=== PATIENT | male | born 1985 | race Caucasian/White ===

== ENCOUNTER 2021-08-25 10:02 | Emergency (ER) | payer OTHER, SELFPAY ==
[2021-08-25] VITALS (8 sets, daily range): BP systolic 104–120; BP diastolic 58–84; PULSE 92–98; RESP 20–29; TEMP 37.4–39.2; O2SAT 97–100
--- NOTE | ~2021-08-25 | XR_ITS ---
EXAMINATION: XR chest 1V portable 08/25/2021 11:01 INDICATION: Weakness and fever PROCEDURE: AP portable chest COMPARISON: No prior studies for comparison. FINDINGS: The lungs are clear. The cardiomediastinal silhouette is within normal limits. There are no pleural effusions. There is no pneumothorax suspected. IMPRESSION: 1: NO ACUTE CARDIOPULMONARY DISEASE. Reviewed, dictated and finalized at location A.
--- NOTE | 2021-08-25 10:13 | ECG_ITS ---
Measurements Intervals [place] Rate: 103 P: 72 NE: 155 QRS: 55 QRSD: 98 T: 59 QT: 318 QTc: 416 Interpretive Statements SINUS TACHYCARDIA LOW VOLTAGE ACROSS THE LIMB LEADS ABNORMAL ECG NO PREVIOUS ECG AVAILABLE FOR COMPARISON Electronically Signed On 08-25-2021 12:42:08 CDT by Bimal Noriega M.D.
[2021-08-25 10:26] LABS: Basophils Absolute Auto 0.1 K/mm3 (0.0-0.1); Basophils Percent Auto 0.7 % (0.2-1.2); Hematocrit 39.6 % (42.0-52.0); Hemoglobin 13.8 g/dL (14.0-18.0); Immature Granulocyte Absolute 0.08 K/mm3 (0.00-0.031); Immature Granulocyte Percent A 0.7 % (0-0.5); Immature Platelet Fraction Pct 5.5 % (0.9-11.2); Lymphocytes Absolute Auto 0.47 K/mm3 (0.9-3.2); Lymphocytes Percent Auto 4.4 % (18.3-44.2); Mean Corpuscular HGB Conc 34.8 g/dl (32-36); Mean Corpuscular Hemoglobin 30.5 pg (26-34); Mean Corpuscular Volume 87.4 fl (80-100); Mean Platelet Volume 10.9 fl (7.4-10.4); Monocytes Absolute Auto 1.4 K/mm3 (0.1-0.6); Monocytes Percent Auto 12.8 % (2.6-8.5); Neutrophils Absolute Auto 8.8 K/mm3 (1.3-6.7); Neutrophils Percent Auto 81.4 % (45.5-73.1); Platelet Count Result 124 k/mm3 (150-375); Red Blood Count 4.53 M/mm3 (4.6-6.20); Red Cell Distribution Width 12.3 % (11.5-14.5); White Blood Count 10.7 K/mm3 (4.5-10.0)
[2021-08-25] MEDS: ACETAMINOPHEN 500 MG TABLET 1000 MG PO (10:32)
[2021-08-25 10:35] LABS: Lactic Acid Reflex 1.5 mmol/L (0.7-2.1)
[2021-08-25 10:36] LABS: Alanine Aminotransferase 60 U/L (4-50); Albumin Level 4.2 g/dL (3.5-5.1); Alkaline Phosphatase 101 U/L (38-126); Anion Gap 10 mmol/L (8-16); Aspartate Amino Transferase 60 U/L (17-59); Bilirubin,Total 0.9 mg/dL (0.2-1.3); Blood Urea Nitrogen 12 mg/dL (9-20); Calcium 9.1 mg/dL (8.4-10.2); Carbon Dioxide 26 mmol/L (22-30); Chloride 97 mmol/L (98-107); Estimated CRCL calculation 72 ml/min; Estimated Glomerular Filt Rate > 60; Glucose 122 mg/dL (65-110); Potassium 3.8 mmol/L (3.4-5.0); Sodium 133 mmol/L (137-145)
[2021-08-25 10:37] LABS: INR 1.2; Prothrombin Time 14.5 Seconds (11.1-14.7)
[2021-08-25] MEDS: SODIUM CHLORIDE 0.9% IV 1,000 ML 999 ML IV CONT ×2 (10:47→12:23)
--- NOTE | 2021-08-25 10:55 | ED.GENADULT ---
HPI - General Adult General Chief complaint: Weakness Stated complaint: cant walk , fever Time Seen by Provider: 08/25/21 10:37 Source: patient, family and RN notes reviewed History of Present Illness HPI narrative: Patient is 36 years old white male came to the emergency room with his from home complaining of general weakness and fever. Patient went to [facility] 7 days ago, 3 days later woke up from sleep with sore throat, had the same at that time. 1 day later not feeling well, headache, fever, weakness, body aches, chills, feeling hot and cold. Yesterday was doing okay, and this morning woke up with general weakness unable to manage to stand up and walk. Shooting pain to lower extremities. Patient vomited once today, no diarrhea. Patient have 3 children 2 of them had runny nose in the last few days. Patient did not get vaccinated for COVID, had Covid infection and the rest of his family on May 2021 Related Data Home Medications Medication Instructions Recorded Confirmed No Home Medications 08/25/21 08/25/21 Allergies Allergy/AdvReac Type Severity Reaction Status Date / Time No Known Allergies Allergy Verified 08/25/21 10:38 Exam Narrative: General appearance: Well-developed, well-nourished, does not look in pain or distress, laying down in bed Skin: Normal color Head: Normocephalic, nontraumatic Eyes: Clear conjunctiva ENT: Oropharynx normal, ears normal, nose normal Neck: Supple, nontender Chest and respiratory: Airway patent, no respiratory distress, no accessory muscle use Heart: Regular rate/rhythm Abdomen: Soft, nontender, no organomegaly, quiet bowel sounds Vascular: Normal peripheral pulses, normal capillary refill. Musculoskeletal: Severe diffuse tenderness of the thigh bilaterally more on the right side, right thigh is slightly larger than the left 1. Diffuse tenderness of the arm bilaterally mainly on the right side which probably swelling according to patient impression. Pain gets severely worse if the patient try to bend his knees or to lift his arms. Neurologic: Alert and oriented ?3, decreased sensation of the lower extremity bilaterally, absent reflexes of the lower extremity bilaterally Course Course Emergency Course: Patient presents with weakness and pain of the lower and upper extremity mainly proximal. Also high fever 39.2, Work-up did not show any significant findings to explain patient condition, elevated inflammatory markers, low platelets, or nonspecific. Viral syndrome, [place] Ortega? syndrome, viral inducing myositis are my concern. [facility] believe [facility] to provide infectious disease, [place] and neurology consults. Consultations Consultation #1: DR CHARAN JACOBSEN [facility], accepted patient transfer. Date: 08/25/21 Time: 13:11 Consultation #2: [facility] hospitalist, agreed with patient to be transferred to another facility Date: 08/25/21 Time: 13:13 Vital Signs Vital signs: Vital Signs Temperature 39.2 C H 08/25/21 10:08 Pulse Rate 98 08/25/21 10:08 Respiratory Rate 26 H 08/25/21 10:08 Blood Pressure 111/84 08/25/21 10:08 Pulse Oximetry 98 08/25/21 10:08 Temperature 37.4 C 08/25/21 11:32 Pulse Rate 96 08/25/21 12:01 Respiratory Rate 26 H 08/25/21 12:01 Blood Pressure 104/60 08/25/21 12:01 Pulse Oximetry 97 08/25/21 12:01 Medical Decision Making Vital Signs Vital Signs: Vital Signs Temperature 39.2 C H 08/25/21 10:08 Pulse Rate 98 08/25/21 10:08 Respiratory Rate 26 H 08/25/21 10:08 Blood Pressure 111/84 08/25/21 10:08 Pulse Oximetry 98 08/25/21 10:08 Temperature 37.4 C 08/25/21 11:32 Pulse Rat
[2021-08-25 10:59] LABS: Monoscreen Negative (Negative); Negative Monotest Control Negative (Negative); Positive Monotest Control Positive (Positive)
[2021-08-25 11:01] LABS: Erythrocyte Sedimentation Rate 53 mm/hr (0-20)
[2021-08-25] MEDS: KETOROLAC 30 MG/ML VIAL (*BKC) IV PUSH (11:03)
[2021-08-25 11:11] LABS: Creatine Kinase 98 U/L (55-170)
[2021-08-25 11:19] LABS: CRP 14.7 mg/dL (<1.0)
[2021-08-25 11:25] LABS: Influenza A QL RT-PCR Negative (Negative); Influenza B QL RT-PCR Negative (Negative); SARS-CoV-2 RNA PCR Negative
[2021-08-25 12:26] LABS: Add Urine Microscopic? NO; Appearance Urine Clear (Clear); Bilirubin Urine Negative (Negative); Blood Urine Negative (Negative); Color Urine Yellow (Yellow); Glucose Urine UA Negative (Negative); Ketones Urine Negative (Negative); Leukocyte Esterase Ur Negative LEU/UL (Negative); Nitrate Urine Negative (Negative); Protein Urine Negative (Negative); Specific Grav Ur 1.012 (1.001-1.035); Urobilinogen Urine Negative mg/dL (<2.0)
[2021-08-25] MEDS: MORPHINE SULFATE (*CRX) 4 MG/ML INJ IV PUSH (13:37)
[2021-08-25] MEDS: ONDANSETRON INJ 4 MG/2 ML VIAL IV PUSH (14:01)
== END 2021-08-25 14:05 | disposition short-term general hospital (02) ==
PROVIDERS: Emergency Provider Emergency Medicine; PCP Family Medicine
DX: B34.9 Viral infection, unspecified (principal); M79.10 Myalgia, unspecified site; Z20.822 Contact with and (suspected) exposure to COVID-19; Z86.16 Personal history of COVID-19; R00.0 Tachycardia, unspecified
CPT/HCPCS: 36415; 71045; 80053; 81003; 82550; 83605; 85025; 85055; 85610; 85652; 86140; 86308; 87040; 87081; 87147; 87502; 87880; 93005; 96361; 96374; 96375; 99284; 99285; A9270; C9803; J1885; J2270; J2405; J7030; U0003; U0005